=== PATIENT | male | born 1995 | race Caucasian/White ===

== ENCOUNTER 2017-02-24 09:11 | Emergency (ER) | payer SELFPAY ==
[~2017-02-24] VITALS: Ht 177.8 cm; Wt 63.5 kg
[2017-02-24 09:22] VITALS: BP_SYST 117
[2017-02-24 09:43] VITALS: BP_SYST 117
[2017-02-24] MEDS ORDERED: IBUPROFEN 800 MG TABLET PO ONE (09:45)
== END 2017-02-24 09:43 | disposition home or self-care (01) ==
LOC: SED 09:13
DX: J06.9 Acute upper respiratory infection, unspecified (principal)
CPT/HCPCS: 99283